=== PATIENT | male | born 1950 | race Caucasian/White ===

== ENCOUNTER 2016-09-21 10:12 | Inpatient (IN) | payer MEDICARE, OTHER ==
[~2016-09-21] VITALS: Ht 172.7 cm; Wt 84.5 kg
[2016-09-21] MEDS ORDERED: PHENYLEPHRINE .5% NA SPR 15 ML BTL ONE (10:35)
[2016-09-21] MEDS ORDERED: CEFAZOLIN 1,000 MG VIAL ONE (13:47)
[2016-09-21] MEDS ORDERED: SODIUM CHLORIDE 0.9% 100 ML IV ONE (13:47)
[2016-09-21] MEDS ORDERED: SODIUM CHLORIDE 0.9% 1,000 ML ONE (13:47)
[2016-09-21] MEDS ORDERED: ONDANSETRON 4 MG VIAL IV PRN (14:55)
[2016-09-21] MEDS ORDERED: ZOLPIDEM 5 MG TAB PO PRN (14:55)
[2016-09-21] MEDS ORDERED: SALINE FLUSH 10 ML FLUSH PRN (14:55)
[2016-09-21] MEDS ORDERED: MAG HYDROX 30 ML UDC PO PRN (14:55)
[2016-09-21] MEDS ORDERED: ALPRAZOLAM 0.25 MG TAB PO PRN (14:55)
[2016-09-21] MEDS ORDERED: NEB-XOPENEX 1.25 MG/3 ML INH PRN (14:55)
[2016-09-21] MEDS ORDERED: MORPHINE 2 MG/ML SYR IV PRN (14:55)
[2016-09-21] MEDS ORDERED: ALU/MAG/SIM 30 ML UDC PO PRN (14:55)
[2016-09-21] MEDS ORDERED: GLUCAGON 1 MG VIAL IM PRN (14:55)
[2016-09-21] MEDS ORDERED: OXYCODONE 5 MG TAB PO PRN (14:55)
[2016-09-21] MEDS ORDERED: DEXTROSE 50% SYRINGE 50 ML IV PRN (14:55)
[2016-09-21] MEDS ORDERED: ACETAMINOPHEN 325 MG TAB PO PRN (14:55)
[2016-09-21] MEDS ORDERED: BISACODYL EC 5 MG TAB PO PRN (14:55)
[2016-09-21] MEDS ORDERED: BISACODYL 10 MG SUPP RECTAL PRN (14:55)
[2016-09-21] MEDS ORDERED: PROMETHAZINE 25 MG/ML VIAL IV PRN (14:55)
[2016-09-21] MEDS: CEFTRIAXONE 1 GM in SODIUM CHLORIDE 0.9% 50 ML IV SCH (16:49)
[2016-09-21] MEDS: SODIUM CHLORIDE 0.9% 1,000 ML IV SCH (17:27)
[2016-09-21 17:38] VITALS: BP_SYST 131; BP_SYST 144; RESP 18; TEMP 98.2
[2016-09-21] MEDS ORDERED: PSEUDOEPHEDRINE 30 MG PO SCH (17:40)
[2016-09-21] MEDS: PSEUDOEPHEDRINE 30 MG PO SCH ×2 (18:00→23:27)
[2016-09-21 18:13] VITALS: Ht 172.7 cm; Wt 84.5 kg
[2016-09-21 19:45] VITALS: BP_SYST 150; RESP 16; TEMP 97.6
[2016-09-21] MEDS: SALINE FLUSH 10 ML FLUSH SCH (20:00)
[2016-09-21] MEDS: FAMOTIDINE 20 MG TAB PO SCH (21:15)
[2016-09-22] VITALS (9 sets, daily range): BP systolic 140–154; RESP 16–18; TEMP 97.9–98.6
[2016-09-22] MEDS: SODIUM CHLORIDE 0.9% FLUSH BAG 500 ML IV SCH (05:02)
[2016-09-22] MEDS: PSEUDOEPHEDRINE 30 MG PO SCH ×2 (05:40→12:08)
[2016-09-22] MEDS: SODIUM CHLORIDE 0.9% 1,000 ML IV SCH (05:41)
[2016-09-22] MEDS: SALINE FLUSH 10 ML FLUSH SCH ×2 (08:00→19:54)
[2016-09-22] MEDS: MULTIVITS/MINERALS (THERAGRAN M) TAB PO SCH (08:50)
[2016-09-22] MEDS: OMEGA 3 FATTY ACIDS 1 GM CAP PO SCH (08:50)
[2016-09-22] MEDS: LISINOPRIL 10 MG TAB PO SCH (08:51)
[2016-09-22] MEDS: FAMOTIDINE 20 MG TAB PO SCH ×2 (08:51→19:54)
[2016-09-22] MEDS: LACTOBACILLUS ACIDOPH CAP PO SCH (08:51)
[2016-09-22] MEDS: CEFTRIAXONE 1 GM in SODIUM CHLORIDE 0.9% 50 ML IV SCH (09:12)
[2016-09-23 03:24] VITALS: BP_SYST 157; RESP 18; TEMP 98
[2016-09-23] MEDS: SODIUM CHLORIDE 0.9% FLUSH BAG 500 ML IV SCH (05:31)
[2016-09-23 07:55] VITALS: BP_SYST 134; RESP 18; TEMP 98.3
[2016-09-23] MEDS: SALINE FLUSH 10 ML FLUSH SCH ×2 (08:13→20:20)
[2016-09-23] MEDS: LACTOBACILLUS ACIDOPH CAP PO SCH (08:14)
[2016-09-23] MEDS: CEFTRIAXONE 1 GM in SODIUM CHLORIDE 0.9% 50 ML IV SCH (08:14)
[2016-09-23] MEDS: FAMOTIDINE 20 MG TAB PO SCH ×2 (08:15→20:20)
[2016-09-23] MEDS: MULTIVITS/MINERALS (THERAGRAN M) TAB PO SCH (08:15)
[2016-09-23] MEDS: OMEGA 3 FATTY ACIDS 1 GM CAP PO SCH (08:15)
[2016-09-23] MEDS: LISINOPRIL 10 MG TAB PO SCH ×2 (08:16→08:17)
[2016-09-23] MEDS: METFORMIN 500 MG TAB PO SCH ×2 (09:00→20:21)
[2016-09-23] MEDS: CEPHALEXIN 500 MG CAP PO SCH ×3 (09:42→20:20)
[2016-09-23 11:00] VITALS: BP_SYST 133; RESP 18; TEMP 98.4
[2016-09-23] MEDS: CETIRIZINE 10 MG TAB PO SCH (14:33)
[2016-09-23 15:27] VITALS: BP_SYST 138; RESP 16; TEMP 98.6
[2016-09-23] MEDS: PSEUDOEPHEDRINE 30 MG PO SCH ×2 (17:16→20:20)
[2016-09-23 19:17] VITALS: BP_SYST 138; RESP 16; TEMP 98.3
[2016-09-23 22:59] VITALS: BP_SYST 122; RESP 18; TEMP 97.9
[2016-09-24 03:02] VITALS: BP_SYST 125; RESP 20; TEMP 98.2
[2016-09-24] MEDS: SODIUM CHLORIDE 0.9% FLUSH BAG 500 ML IV SCH (06:05)
[2016-09-24 06:55] VITALS: RESP 16
[2016-09-24 07:52] VITALS: BP_SYST 122; RESP 20; TEMP 98.1
[2016-09-24] MEDS ORDERED: MISSING DOSE XX ONE (08:15)
[2016-09-24] MEDS: SALINE FLUSH 10 ML FLUSH SCH ×2 (08:22→20:00)
[2016-09-24] MEDS: METFORMIN 500 MG TAB PO SCH ×2 (08:23→20:01)
[2016-09-24] MEDS: MULTIVITS/MINERALS (THERAGRAN M) TAB PO SCH (08:23)
[2016-09-24] MEDS: FAMOTIDINE 20 MG TAB PO SCH ×2 (08:23→20:01)
[2016-09-24] MEDS: CETIRIZINE 10 MG TAB PO SCH (08:23)
[2016-09-24] MEDS: CEPHALEXIN 500 MG CAP PO SCH ×3 (08:23→20:01)
[2016-09-24] MEDS: LISINOPRIL 10 MG TAB PO SCH (08:23)
[2016-09-24] MEDS: LACTOBACILLUS ACIDOPH CAP PO SCH (08:23)
[2016-09-24] MEDS: PSEUDOEPHEDRINE 30 MG PO SCH ×4 (08:23→20:00)
[2016-09-24] MEDS: OMEGA 3 FATTY ACIDS 1 GM CAP PO SCH (08:23)
[2016-09-24 11:59] VITALS: BP_SYST 133; RESP 20; TEMP 98.3
[2016-09-24 15:14] VITALS: BP_SYST 121; RESP 18; TEMP 98.6
[2016-09-24 20:27] VITALS: BP_SYST 132; RESP 20; TEMP 98.1
[2016-09-25] VITALS (7 sets, daily range): BP systolic 111–130; RESP 16–18; TEMP 97.3–98.4
[2016-09-25] MEDS: SODIUM CHLORIDE 0.9% FLUSH BAG 500 ML IV SCH (05:38)
[2016-09-25] MEDS: SALINE FLUSH 10 ML FLUSH SCH ×2 (08:20→21:04)
[2016-09-25] MEDS: LISINOPRIL 10 MG TAB PO SCH (08:21)
[2016-09-25] MEDS: MULTIVITS/MINERALS (THERAGRAN M) TAB PO SCH (08:21)
[2016-09-25] MEDS: PSEUDOEPHEDRINE 30 MG PO SCH ×4 (08:21→21:03)
[2016-09-25] MEDS: CETIRIZINE 10 MG TAB PO SCH (08:21)
[2016-09-25] MEDS: OMEGA 3 FATTY ACIDS 1 GM CAP PO SCH (08:21)
[2016-09-25] MEDS: FAMOTIDINE 20 MG TAB PO SCH ×2 (08:21→21:03)
[2016-09-25] MEDS: CEPHALEXIN 500 MG CAP PO SCH ×3 (08:21→21:03)
[2016-09-25] MEDS: LACTOBACILLUS ACIDOPH CAP PO SCH (08:21)
[2016-09-25] MEDS: METFORMIN 500 MG TAB PO SCH ×2 (08:21→21:03)
[2016-09-26 04:03] VITALS: BP_SYST 120; RESP 16; TEMP 97.8
[2016-09-26] MEDS: SODIUM CHLORIDE 0.9% FLUSH BAG 500 ML IV SCH (06:00)
[2016-09-26 07:16] VITALS: BP_SYST 127; RESP 16; TEMP 98
[2016-09-26] MEDS: OMEGA 3 FATTY ACIDS 1 GM CAP PO SCH (08:15)
[2016-09-26] MEDS: SALINE FLUSH 10 ML FLUSH SCH (08:15)
[2016-09-26] MEDS: PSEUDOEPHEDRINE 30 MG PO SCH ×2 (08:16→13:45)
[2016-09-26] MEDS: LISINOPRIL 10 MG TAB PO SCH (08:16)
[2016-09-26] MEDS: CETIRIZINE 10 MG TAB PO SCH (08:16)
[2016-09-26] MEDS: MULTIVITS/MINERALS (THERAGRAN M) TAB PO SCH (08:17)
[2016-09-26] MEDS: METFORMIN 500 MG TAB PO SCH (08:17)
[2016-09-26] MEDS: FAMOTIDINE 20 MG TAB PO SCH (08:17)
[2016-09-26] MEDS: CEPHALEXIN 500 MG CAP PO SCH ×2 (08:17→16:17)
[2016-09-26] MEDS: LACTOBACILLUS ACIDOPH CAP PO SCH (08:17)
[2016-09-26 11:30] VITALS: BP_SYST 115; RESP 16; TEMP 98.3
[2016-09-26] MEDS ORDERED: OXYMETAZOLINE 0.05% NOSE SPRAY NARE RIGHT PRN (11:50)
[2016-09-26] MEDS: SOD CHL NASAL SPR 45ML NARE EACH SCH ×3 (12:18→16:16)
[2016-09-26 16:05] VITALS: BP_SYST 115; RESP 16; TEMP 98.3
[2016-09-26 16:18] VITALS: BP_SYST 123; RESP 16; TEMP 98.8
[2016-09-26] MEDS ORDERED: BACITRACIN OINT TOPICAL SCH (21:00)
== END 2016-09-26 17:35 | disposition home or self-care (01) | DRG 151 ==
LOC: ENRESERVDT → ENRESERVTM → ER 10:12 → EMR 14:55 → 4THW 16:54 → OBSVTOIN 09-22 19:08 → ENPENDDIS 09-22 19:08
PROVIDERS: ADMIT Family Medicine; ATTEND Family Medicine
PROC: 2Y41X5Z Packing of Nasal Region using Packing Material (ICD-10-PCS; principal; 2016-09-22)
DX: R04.0 Epistaxis (principal); I10 Essential (primary) hypertension; E11.9 Type 2 diabetes mellitus without complications; B91 Sequelae of poliomyelitis; D53.9 Nutritional anemia, unspecified; E78.5 Hyperlipidemia, unspecified; R26.9 Unspecified abnormalities of gait and mobility; S00.33XA Contusion of nose, initial encounter; W01.190A Fall on same level from slipping, tripping and stumbling with subsequent striking against furniture, initial encounter; Z79.84 Long term (current) use of oral hypoglycemic drugs; G47.30 Sleep apnea, unspecified; Z87.891 Personal history of nicotine dependence; S02.2XXA Fracture of nasal bones, initial encounter for closed fracture
CPT/HCPCS: 36415; 70450; 70486; 80048; 80053; 82947; 85025; 85610; 85730; 94762; 96361; 96365; 99232; 99233; 99239